=== PATIENT | male | born 1955 | race Caucasian/White ===

== ENCOUNTER 2019-03-01 11:33 | Inpatient (IN) | payer OTHER ==
[~2019-03-01] VITALS: Ht 188 cm; Wt 124.7 kg
[~2019-03-01 11:33] MED LIST: ASPIRIN81 MG PO; EC NAPROSYN500 MG PO; LAC PO; LEVAQUIN750 MG PO; LOP100 PO; NAPROXEN DELAY500 M1 PO; NOR5 PO; PRILOSEC20 MG PO; SYN125 PO; ZOL50 PO; ZYL300 PO
[2019-03-01 11:37] VITALS: Ht 188 cm; Wt 124.7 kg
--- NOTE | 2019-03-01 11:54 | NUR ---
PT AWAKE AND ALERT. PT C/O BURNING C/P AND SOB SINCE THIS AM. PT ON FULL CM. NAD. RESP E/U. DR FUENTES AT BEDSIDE FOR MSE
--- NOTE | 2019-03-01 12:30 | NUR ---
PT MEDICATED PER DOCTORS ORDERS
[2019-03-01 12:31] LABS: BASOPHIL % 0.3 % (0-2); PLATELET COUNT 219 x10^3mcL (130-400); RED CELL DISTRIBUTION WIDTH 13.6 % (11.5-14.5)
[2019-03-01 12:41] LABS: CALCIUM 11.1 mg/dL (8.5-10.1); CREATININE SERUM 1.7 mg/dL (0.7-1.3); POTASSIUM SERUM 5.5 mmol/L (3.5-5.1)
[2019-03-01 12:46] LABS: ALBUMIN 3.8 g/dL (3.4-5.0); BILIRUBIN TOTAL 0.3 mg/dL (0.20-1.00); TOTAL PROTEIN, SERUM 7.1 g/dL (6.4-8.2)
--- NOTE | 2019-03-01 13:09 | NUR ---
PT MEDICATED PER DOCTORS ORDERS
[2019-03-01] MEDS ORDERED: METOPROLOL SUC200 M2 PO (13:42)
[2019-03-01] MEDS ORDERED: AMLODIPINE BESYL5 M2 PO (13:43)
[2019-03-01] MEDS ORDERED: LEVO-T125 MCG GT (13:43)
[2019-03-01] MEDS ORDERED: ALLOPURINOL100 MG PO (13:44)
[2019-03-01] MEDS ORDERED: ZOLOFT50 MG PO (13:44)
[2019-03-01] MEDS ORDERED: LISINOPRIL10 MG PO (13:44)
[2019-03-01] MEDS ORDERED: ROBAXIN-750750 MG GT (13:44)
[2019-03-01] MEDS ORDERED: GOOD SENSE ASPI81 M3 PO (13:45)
[2019-03-01] MEDS ORDERED: OMEPRAZOLE40 M1 PO (13:46)
[2019-03-01 14:16] VITALS: BP 150/61
[2019-03-01 14:18] LABS: MAGNESIUM 1.7 mg/dL (1.8-2.4); PHOSPHOROUS 2.3 mg/dL (2.5-4.9)
[2019-03-01 14:19] LABS: CHOLESTEROL/HDL RATIO 6.7
--- NOTE | 2019-03-01 14:29 | NUR ---
RECEIVED PT FROM ER, PT ADMIT FOR CHEST PAIN, HYPERKALEMIA, PT IS A/O X4, VERBAL RESPONSIVE, ABLE TO TELL WHAT HE NEEDS. LUNG SOUND CLEAR BILATERAL, NO COUGH, NO SOB, PO2 95% IN ROOM AIR, PT IS ON TELE 22, VENTRICULAR RHYTHM, DENY ANY CHEST PAIN AT THIS MOMENT, PACEMAKER AT LEFT CHEST, NO PACING AT THIS MOMENT. BOWEL SOUND PRESENT ALL 4 QUADRANTS, NO DISTENTION, NO TENDER. PEDAL PULSE PRESENT BOTH FEET, NO EDEMA, IV AT LEFT AC, NO LEAKING, NO INFILRATION. ALL ADLS ASSIST, ALL NEED MET, CALL LIGHT IN REACH, WILL CONTINUE TO MONITOR.
[2019-03-01 15:06] LABS: UA SPECIFIC GRAVITY 1.015 (1.005-1.035); microscopic required? YES; urine erythrocyte TRACE (NEGATIVE)
[2019-03-01 15:25] LABS: AMPHETAMINE QUAL UR NONE DETECTED (See below)
--- NOTE | 2019-03-01 15:58 | NUR ---
AT 1420 - TOOK OVER CARE OF PATIENT. ADMITTED WITH CHEST PAIN, WHICH HAS SUBSIDED SINCE BEING MEDICATED IN ER. ADMITTING NURSE DOING HISTORY AND ASSESSMENT. IV INFUSION OF NS COMMENCED AT 100 ML/HR. AT 1430 - URINE COLLECTED AND TAKEN TO LAB FOR UA, UDS AND CULTURE. AT 1500 - PATIENT GIVEN SNACK. AT 1550 - APPEARS COMFORTABLE AT THIS TIME. RESTING WITH EYES CLOSED. RESPIRATIONS REGULAR. CALL LIGHT WITHIN REACH.
[2019-03-01 18:37] VITALS: BP 142/47
--- NOTE | 2019-03-01 18:58 | NUR ---
AT 1825 - RECEIVED CALL FROM LAB WITH SECOND TROPONIN LEVEL OF 0.238. CALL PLACED FOR DR KAUFFMAN TO NOTIFY, AT 1830 - RECEIVED CALL FROM DR PETERSEN.DR NOTIFIED OF TROPONIN RESULTS. AT 1840 - RECEIVED ORDERS FOR LOVENOX. AWAITING AVAILABILITY BY PHARMACY. PATIENT AWAKE, ALERT AND OREITNED. VSS. DENIES ANY CHEST PAIN. IV INFUSING NS AT 100 ML/HR. AMBULATORY TO BATHROOM FOR TOILET NEEDS. WILL ENDORSE CARE TO NIGHT NURSE.
--- NOTE | 2019-03-01 19:30 | NUR ---
RECIEVED PATIENT AT START OF SHIFT A/O X4, ON TELE #22, VENTRICULAR PACED RHYTHM. PATIENT DENIES CHEST PAIN. LAST TROPONIN OF 0.238. HEART SOUNDS WNL, PULSES STRONG BILATERALLY, CAP REFILL BRISK. NO EDEMA NOTED. LUNGS CTAB, NO SOB ON RA. ABDOMEN ROUND AND SOFT, BS ACTIVE. BM TODAY 03/01 WAS FORMED. IV TO LAC IS INFUSING WELL. BED LOCKED AND IN LOWEST POSITION. CALL LIGHT AND BEDSIDE TABLE WITHIN REACH.
[2019-03-01 20:25] VITALS: BP 156/41
--- NOTE | 2019-03-01 22:00 | NUR ---
[employer] PACEMAKER WAS INTERROGATED AND IS FUNCTIONING NORMALLY. REPORT IN CHART.
--- NOTE | 2019-03-02 01:00 | NUR ---
3RD TROP VALUE INCREASED TO 0.328. DR. ARMENDARIZ AWARE. PATIENT DENIES CHEST PAIN. NO CHANGE IN ORDERS.
[2019-03-02 05:04] VITALS: BP 113/53
--- NOTE | 2019-03-02 06:55 | NUR ---
PATIENT SLEPT WELL THROUGH THE NIGHT. DENIES CHEST PAIN. NO FURTHER SIGNIFICANT EVENTS. WILL ENDORSE CARE TO MORNING NURSE.
--- NOTE | 2019-03-02 07:07 | NUR ---
RECEIVED PT FROM SHIFT NURSE A/OX4 WATCHING TV. NO ACUTE DISTRESS NOTED. DENIES CHEST PAIN OR PRESSURE. IV INTACT AND PATENT. BED IN LOW POSITION. CALL LIGHT WITHIN REACH. WILL CONTINUE TO MONITOR.
[2019-03-02 07:26] LABS: CALCIUM 10.8 mg/dL (8.5-10.1); CARBON DIOXIDE 29.8 mmol/L (21-32); CREATININE SERUM 1.4 mg/dL (0.7-1.3); MAGNESIUM 1.7 mg/dL (1.8-2.4); PHOSPHOROUS 2.5 mg/dL (2.5-4.9); POTASSIUM SERUM 5.3 mmol/L (3.5-5.1)
[2019-03-02 07:38] LABS: BASOPHIL % 0.5 % (0-2); PLATELET COUNT 201 x10^3mcL (130-400); RED CELL DISTRIBUTION WIDTH 13.7 % (11.5-14.5)
--- NOTE | 2019-03-02 09:24 | NUR ---
RECEIVED CALL FORM LAB. TROPONIN TRENDING DOWN 0.313. PT ON LOVENOX. WILL CONTINUE TO MONITOR.
[2019-03-02 10:10] VITALS: BP 134/50
--- NOTE | 2019-03-02 10:11 | NUR ---
PT RESTING IN BED. NO C/O OF CHEST PAIN OR PRESSURE. FAMILY MEMBER AT BEDSIDE. CALL LIGHT WITHIN REACH. WILL CONTINUE TO MONITOR.
--- NOTE | 2019-03-02 12:14 | NUR ---
PT LYING IN BED TALKING TO FAMILY MEMBER. NO ACUTE DISTRESS NOTED. CALL LIGHT WITHIN REACH. WILL CONTINUE TO MONITOR.
[2019-03-02 13:13] VITALS: BP 137/61
--- NOTE | 2019-03-02 15:52 | NUR ---
PT ASLEEP BUT AROUSABLE. NO ACUTE DISTRESS NOTED. CALL LIGHT WITHIN REACH. WILL CONTINUE TO MONITOR.
[2019-03-02 16:04] VITALS: BP 147/62
--- NOTE | 2019-03-02 18:16 | NUR ---
PT RESTING IN BED TALKING WITH . NO ACUTE DISTRESS NOTED. DENIES CHEST PAIN OR PRESSURE. IV INTACT AND PATENT. BED IN LOW POSITION. CALL LIGHT WITHIN REACH. WILL BE ENDORSED.
--- NOTE | 2019-03-02 19:27 | NUR ---
REIEVED PATIENT AT START OF SHIFT A/O X4, ON TELE 22, PACED VENTRICULAR RHYTHM. PATIENT DENIES CHEST PAIN. PULSES STRONG. LUNGS CTAB, NO SOB. IV INFUSING WITHOUT ERYTHEMA OR INFILTRATION. MD AWARE OF HIGH POTTASIUM LEVEL. NO CHANGE IN ORDERS. BED LOCKED AND IN LOWEST POSITION. CALL LIGHT AND BEDSIDE TABLE WITHIN REACH.
[2019-03-02 20:52] VITALS: BP 135/51
[2019-03-03 05:44] VITALS: BP 107/44
--- NOTE | 2019-03-03 06:27 | NUR ---
NO SIGNIFICANT EVENTS THIS SHIFT. IV INFUSING WELL. CALL LIGHT WITHIN REACH. WILL ENDORSE CARE TO MORNING NURSE.
[2019-03-03 06:28] LABS: BASOPHIL % 0.3 % (0-2); CALCIUM 10.4 mg/dL (8.5-10.1); CARBON DIOXIDE 27.3 mmol/L (21-32); CHLORIDE SERUM 107 mmol/L (98-107); CREATININE SERUM 1.1 mg/dL (0.7-1.3); GFR1 > 60 mL/min; GLUCOSE SERUM 97 mg/dL (74-106); MAGNESIUM 1.6 mg/dL (1.8-2.4); PHOSPHOROUS 2.4 mg/dL (2.5-4.9); PLATELET COUNT 179 x10^3mcL (130-400); POTASSIUM SERUM 4.9 mmol/L (3.5-5.1); RED CELL DISTRIBUTION WIDTH 13.3 % (11.5-14.5); SODIUM SERUM 141 mmol/L (136-145)
--- NOTE | 2019-03-03 07:41 | NUR ---
SLEEPING BUT AROUSABLE. IN NO RESP. DISTRESS. VS WNL. NO C/O CHEST DISCOMFORT AT THIS TIME. CALL LIGHT WITHIN REACH. WILL CONTINUE WITH PLAN OF CARE.
[2019-03-03 09:25] VITALS: BP 136/56
--- NOTE | 2019-03-03 12:24 | NUR ---
RESTING IN BED, NO RESP. DISTRESS NOTED. NO C/O PAIN OR DISCOMFORT. FAMILY AT BEDSIDE.
[2019-03-03 13:27] VITALS: BP 116/50
[2019-03-03 18:02] VITALS: BP 145/52
--- NOTE | 2019-03-03 18:49 | NUR ---
REMAINS IN NO DISTRESS. AWAKE AND ALERT. FAMILY AT BEDSIDE. NO C/O CHEST PAIN AT THIS TIME. VS REMAINS WNL. 100% PACED ON TELE. IVF INFUSING WELL AND SITE WITH NO TENDERNESS OR SWELLING. CALL LIGHT WITHIN REACH. WILL BE ENDORSED TO INCOMING SHIFT.
--- NOTE | 2019-03-03 19:43 | NUR ---
AWAKE AND ALERT, ORIENTED TO NAME, PLACE, TIME AND SITUATION. SPEECH CLEAR AND APPROPRIATE. BREATHING EVEN AND UNLABORED ON ROOM AIR, DENIES HAVING SHORTNESS OF BREATH. DENIES HAVING CHEST PAIN OR CHEST DISCOMFORT. PACED RHYTHM ON TELE, HR 60/MIN. IVF OF NS AT 100ML/HR. VISITORS IN ROOM.
[2019-03-03 20:34] VITALS: BP 146/56
--- NOTE | 2019-03-03 21:06 | NUR ---
ULTRASOUND BEING DONE
--- NOTE | 2019-03-03 23:14 | NUR ---
EYES CLOSED, BREATHING EVEN AND UNLABORED ON ROOM AIR. HOB KEPT ELEVATED 30 DEG. CALL LIGHT WITHIN EASY REACH.
[2019-03-04 03:55] VITALS: BP 155/58
[2019-03-04 04:52] VITALS: BP 155/58
[2019-03-04 05:44] LABS: BASOPHIL % 0.4 % (0-2); PLATELET COUNT 206 x10^3mcL (130-400); RED CELL DISTRIBUTION WIDTH 13.6 % (11.5-14.5)
--- NOTE | 2019-03-04 05:49 | NUR ---
[facility] ETA SET BY LOG INSPECTOR IS 0615H. REPORT TO BE GIVEN TO [facility]PER[facility] AT 0630H. PT AWARE OF TRANSFER AND HAS SIGNED ACKNOWLEDGEMENT OF TRANSFER. HEPLOCKED IV TO LEFT AC. IV SITE FLUSHED WELL, FREE FROM ERYTHEMA OR SWELLING. KEPT NPO SINCE MIDNIGHT. PT AWAKE AND ALERT, ORIENTED TO NAME, PLACE, TIME AND SITUATION. SPEECH CLEAR AND APPROPRIATE. BREATHING EVEN AND UNLABORED, DENIES HAVING SHORTNESS OF BREATH. SLEPT THROUGH MOST OF SHIFT.
[2019-03-04 05:53] LABS: CALCIUM 10.6 mg/dL (8.5-10.1); CARBON DIOXIDE 27.8 mmol/L (21-32); CHLORIDE SERUM 106 mmol/L (98-107); CREATININE SERUM 1.1 mg/dL (0.7-1.3); GFR1 > 60 mL/min; GLUCOSE SERUM 99 mg/dL (74-106); MAGNESIUM 1.7 mg/dL (1.8-2.4); POTASSIUM SERUM 4.8 mmol/L (3.5-5.1); SODIUM SERUM 139 mmol/L (136-145)
--- NOTE | 2019-03-04 06:23 | NUR ---
[facility] TRANSPORT HERE, REPORT GIVEN, TRANSFER PACKET HANDED OVER. PT AWAKE AND ALERT, IN NO ACUTE DISTRESS. DENIES HAVING CHEST PAIN OR SHORTNESS OF BREATH. TELEBOX 22 REMOVED AND RETURNED TO MONITOR STATION.
--- NOTE | 2019-03-04 06:37 | NUR ---
REPORT GIVEN TO [facility] [employer]ICAL TECHNICIAN NURSE PIPER. ALSO INFORMED THAT DUE SYNTHROID TABLET THIS AM WAS ADMINISTERED AND THAT LAB RESULTS DRAWN TODAY ARE IN THE TRANSFER PACKET.
== END 2019-03-04 06:28 | disposition short-term general hospital (02) | DRG 280 ==
LOC: ED 11:33 → DU 13:20
PROVIDERS: Emergency Medicine; ADMIT Family Medicine
DX: I21.4 Non-ST elevation (NSTEMI) myocardial infarction (principal); N17.0 Acute kidney failure with tubular necrosis; E87.1 Hypo-osmolality and hyponatremia; I12.9 Hypertensive chronic kidney disease with stage 1 through stage 4 chronic kidney disease, or unspecified chronic kidney disease; N18.9 Chronic kidney disease, unspecified; E83.39 Other disorders of phosphorus metabolism; E83.42 Hypomagnesemia; E87.5 Hyperkalemia; M10.9 Gout, unspecified; K21.9 Gastro-esophageal reflux disease without esophagitis; E78.5 Hyperlipidemia, unspecified; E03.9 Hypothyroidism, unspecified; Z95.0 Presence of cardiac pacemaker; Z79.82 Long term (current) use of aspirin
CPT/HCPCS: 83880; J1650; J1815; J3475; J3490; J7030; Q0092